=== PATIENT | female | born 1940 | race Caucasian/White ===

== ENCOUNTER 2020-11-08 17:28 | Observation (INO) ==
[2020-11-08] MEDS ORDERED: *HR* LORazepam 2 MG/ML VIAL IVP PRN (18:28)
[2020-11-08 18:33] LABS: Bilirubin,Urine Negative (Negative); Blood,Urine Negative (Negative); Clarity,Urine Clear (Clear); Color,Urine Colorless (Yellow); Glucose,Urine (UA) Normal (Normal); Ketones,Urine Negative (Negative); Leukocyte Esterase,Urine Negative (Negative); Nitrite,Urine Negative (Negative); PH,Urine 5.5 pH Units (5.0-8.0); Protein,Urine Negative (Neg-Trace); Specific Gravity,Urine 1.005 (1.010-1.025); Urobilinogen,Urine Normal (Normal)
[2020-11-08 18:43] LABS: Amphetamine Screen,Urine Negative ng/mL (Cutoff=1000); Barbiturate Screen,Urine Negative ng/mL (Cutoff=200); Benzodiazepines Screen,Urine Negative ng/mL (Cutoff=200); Cannabinoid Screen,Urine Negative ng/mL (Cutoff = 50); Cocaine Screen,Urine Negative ng/mL (Cutoff= 300); Opiate Screen,Urine Negative ng/mL (Cutoff=300); Phencyclidine Screen,Urine Negative ng/mL (Cutoff=25)
[2020-11-08 18:54] LABS: Basophils # 0.1 K/mcL (0.0-0.2); Eosinophils # 0.3 K/mcL (0.0-0.6); Eosinophils % 5.4 %; Hematocrit 46.1 % (35.3-44.9); Hemoglobin 15.2 g/dL (11.5-15.4); Immature Granulocytes % 0.2 % (0-4); Lymphocytes # 3.3 K/mcL (0.6-4.6); Lymphocytes % 55.2 %; Mean Corpuscular Hemoglobin 32.8 pg (28.0-33.3); Mean Corpuscular Volume 99.6 fL (83.0-100.0); Mean Platelet Volume 9.9 fL (9.4-12.4); Monocytes # 0.3 K/mcL (0.0-1.3); Monocytes % 5.5 %; Platelet Count 112 K/mcL (140-400); Red Blood Count 4.63 M/mcL (3.82-4.97); Red Cell Distribution Width 14.1 % (11.5-14.5); Segmented Neutrophils % 32.7 %
[2020-11-08 19:12] LABS: Acetaminophen < 10 mcg/mL (10-20); Alanine Aminotransferase 36 Units/L (7-52); Albumin 3.9 g/dL (3.5-5.7); Albumin/Globulin Ratio 1.2 (1.1-2.2); Alkaline Phosphatase 110 Units/L (34-104); Aspartate Amino Transferase 112 Units/L (13-39); BUN/Creatinine Ratio 14 (6-26); Bilirubin,Direct 0.2 mg/dL (0.0-0.2); Bilirubin,Indirect 0.5 mg/dL (0.0-1.0); Bilirubin,Total 0.7 mg/dL (0.3-1.0); Blood Urea Nitrogen 11 mg/dL (8-23); Calcium 9.2 mg/dL (8.6-10.3); Carbon Dioxide 25 mEq/L (23-29); Chloride 107 mEq/L (98-107); Chol/HDL Ratio 2.3 (0-4.9); Cholesterol 195 mg/dL (< 200); Ethanol 295 mg/dL (Less than 10); Globulin 3.2 g/dL (2.4-3.5); Glucose 89 mg/dL (70-105); HDL Cholesterol 84 mg/dL (40-59); LDL Cholesterol,Calculated 88 mg/dL (< 100); Osmolality,Calculated 295 (280-300); Potassium 4.1 mEq/L (3.5-5.1); Sodium 143 mEq/L (136-145); Total Protein 7.1 g/dL (6.4-8.9); Triglycerides 116 mg/dL (< 150); eGFR For African Americans > 60 (> 60); eGFR For Non-African Americans > 60 (> 60)
[2020-11-08 19:52] LABS: Estimated Average Glucose 94 mg/dl; Hemoglobin A1C 4.9 %
[2020-11-08] MEDS ORDERED: Neosporin OINT 1 APPL PACKET TP ONE (22:10)
[2020-11-08] MEDS ORDERED: Naloxone 0.4 MG/ML INJ IVP PRN (23:20)
[2020-11-09] MEDS ORDERED: Tolterodine LA (24 HR) 2 MG CAP.ER.24H PO PRN (13:50)
[2020-11-09] MEDS ORDERED: Acetaminophen 325 MG TABLET PO PRN (22:29)
[2020-11-10] MEDS ORDERED: amLODIPine 5 MG TABLET PO SCH (09:00)
[2020-11-10] MEDS ORDERED: lisinopriL 20 MG TABLET PO SCH (09:00)
[2020-11-10 10:57] VITALS: BP 155/73
== END 2020-11-10 12:58 | disposition home or self-care (01) ==
LOC: 2NENU 17:28 → EMEROOARM 17:28 → SUATTDRO 22:23 → 2NENU 23:30
PROVIDERS: ADMIT Family Medicine; ATTEND Internal Medicine